=== PATIENT | female | born 1980 | race Caucasian/White ===

== ENCOUNTER → 2022-11-05 15:03 | Outpatient (CLI) | payer OTHER, SELFPAY ==
--- NOTE | ~2022-11-05 | MM_ITS ---
EXAMINATION: MM screening monse BI w lionel HISTORY: Screening mammogram TECHNIQUE: Craniocaudal and mediolateral oblique 3-D tomosynthesis images were obtained and synthetic 2-D images were generated. CAD analysis was submitted and interpreted. COMPARISON: 02/24/2019 BREAST PARENCHYMAL COMPOSITION: The breasts are heterogeneously dense, which may obscure small masses . FINDINGS: No suspicious mass, calcification, or architectural distortion are identified in either shara ast to suggest malignancy. There has been no suspicious interval change. IMPRESSION: 1. No mammographic evidence of malignancy. 2. Recommend routine screening mammography in one year. BI-RADS Category 1: Negative Reviewed, dictated and finalized at location A. NICS ENGINEER
== END ==
PROVIDERS: PCP Family Medicine; Visit Provider Family Medicine
DX: Z12.31 Encounter for screening mammogram for malignant neoplasm of breast (principal)
CPT/HCPCS: 77063; 77067

== ENCOUNTER 2022-11-06 08:38 | Outpatient (CLI) | payer OTHER, SELFPAY ==
--- NOTE | ~2022-11-06 | MR_ITS ---
MRI of the left knee Clinical history: Pain Technique: Coronal proton density and proton density-weighted images, sagittal proton-density and T2 fat-sat images, and axial proton-density fat-saturated images were acquired. Findings: Anterior and posterior cruciate ligaments are intact. Medial collateral ligament and the la teral collateral ligament complex are intact. Popliteus tendon is intact. There is mild intrasubstance degenerative signal in the menisci without definite medial or lateral me niscal tear. There is mild chondromalacia the medial and lateral compartments. There is extensive high-grade chond romalacia of the femoral trochlea. There is extensive high-grade chondromalacia patella, especially o f the lateral patellar facet. There is narrowing of the lateral patellofemoral compartment with walker lofemoral osteophytes present. There are small medial and lateral joint line osteophytes. Extensor mechanism is intact. No significant joint effusion or Eller's cyst. Impression: Moderate osteoarthritis of the patellofemoral compartment, as detailed above. Mild degenerative hammer e of the medial and lateral compartments. No ligamentous injury or meniscal tear. Reviewed, dictated and finalized at location M. AURANT AREA MANAGER Impression: Moderate osteoarthritis of the patellofemoral compartment, as detailed above. M ild degenerative change of the medial and lateral compartments. No ligamentous injury or meniscal tear.
== END 2022-11-06 08:39 ==
PROVIDERS: PCP Physician Assistant; Visit Provider Physician Assistant
DX: M25.562 Pain in left knee (principal); M23.8X2 Other internal derangements of left knee; M17.12 Unilateral primary osteoarthritis, left knee
CPT/HCPCS: 73721

== ENCOUNTER 2023-01-01 14:19 | Outpatient (CLI) | payer OTHER, SELFPAY ==
--- NOTE | ~2023-01-01 | US_ITS ---
EXAMINATION: US soft tissue buttock RT DATE: 01/01/2023 14:35 INDICATION: Right buttock lump. TECHNIQUE: Multiple grayscale and Doppler ultrasound images of the right buttock were obtained. COMPARISON: None FINDINGS: In the right buttock, there is a 3.0 x 2.9 x 2.6 cm peripherally calcified subcutaneous mas s. IMPRESSION: 1. Peripherally calcified subcutaneous mass in the right buttock, likely old fat necrosis. Reviewed, dictated and finalized at location A. ICULUM DEVELOPMENT COORDINATOR IMPRESSION: 1. Peripherally calcified subcutaneous mass in the right buttock, likely old fa t necrosis.
== END 2023-01-01 14:20 ==
PROVIDERS: PCP Family Medicine; Visit Provider Nurse Practitioner
DX: R22.2 Localized swelling, mass and lump, trunk (principal)
CPT/HCPCS: 76705

== ENCOUNTER 2023-02-10 00:12 | Day surgery (SDC) | payer OTHER, SELFPAY ==
[2023-01-29 09:58] VITALS: BMI 47.9
--- NOTE | 2023-01-29 10:11 | PC.NURSE ---
Report to the Outpatient Waiting Room, entrance under the green pavilion located off [facility], at time _1000 on date _02/10/23. Planned Procedure Time: 1200. Time changes happen often and if your time is changed the preop area will call you the afternoon before. - You and your visitor will be asked to self-screen and do not enter if you have any COVID symptoms. - Only one visitor is requested with a max of two and NO children visitors are allowed at this time. - The patient visitor may be requested to leave or wait in car when not with patient due to distancing restrictions. - A mask is optional within the hospital at this time. Patients may have clear liquids (water, carbonated beverages, clear teas, apple juice) until 3 hours prior to surgery with a maximum of 20 ounces. - No food from midnight until time of surgery - Infants may have breast milk until 4 hours before surgery, infant formula 6 hours prior to surgery. - Children will be allowed to drink immediately following surgery. If applicable, please bring a bottle or sippy cup to assist with drinking. Juice, water, soda, and popsicles are readily available. For infants on formula, please bring formula the day of surgery. Pacifiers are allowed. Take the following medications with a SIP of water the morning of surgery: levothyroxine, allegra___ DO NOT STOP ANY OF YOUR OTHER PRESCRIPTION MEDICATIONS PRIOR TO SURGERY ?EXCEPT THE FOLLOWING Medications to discontinue per physician Date to take last dose Please no make-up, nail greek, hairspray, perfume, deodorant, or body powder the day of surgery. No jewelry (including any body piercings) or valuables the day of surgery, leave them at home. Please take a shower or bath the night before, or the morning of, surgery with an antibacterial soap. Wear comfortable, loose fitting clothing. Children are encouraged to wear pajamas. - Jewelry must be removed prior to entering the operating room. Rings and piercings that are not removed may be cut off. - The hospital will not accept responsibility for valuables. - Please leave all valuables, including medications, at home the day of surgery. If you are going home after surgery, a licensed roll off driver must drive you home. - NO public transportation without another adult if you receive anesthesia. - We recommend that an adult stay with you for 24 hours following discharge. - We also recommend that you do not drive, make important decision, drink alcoholic beverages, or take any drugs that were not prescribed by your health care provider for at least 24 hours after your discharge time. For Pediatric surgeries, we recommend two adults accompany the child home. Follow any additional instructions given to you from your surgeon. If you or anyone in your household have experienced Covid symptoms in the past week, please notify your surgeon or the nurse liaison at the phone number below for possible testing. Telephone instructions given to Lisa Martínez and asked if any additional questions and then verbalized understanding. Patient advised to call surgeon office or pre surgery nurse liaison [phone] if any additional questions.
--- NOTE | 2023-02-10 08:36 | WPDANESEPPF ---
Anes - Initial Pre Proc Eval Procedure: Operation Date: 02/10/23 12:00 Proposed Procedures p Excisional Biopsy Right Buttock Mass - Elodia Escalante MD Date/Time: 02/10/23 08:36 Surgeon: Elodia Escalante MD Pre Op Diagnosis: Recurrent Rt Buttock mass Patient Data Age: 42 Gender: F Height: 1.7 m Weight: 139 kg Allergies Allergy/AdvReac Type Severity Reaction Status Date / Time Penicillins Allergy Unknown 1985 per Verified 02/10/23 11:07 chart Home Medications Medication Instructions Recorded Confirmed Type fexofenadine 180 mg tablet 180 mg PO DAILY 04/11/20 02/10/23 History ([place]am[place] Allergy) levothyroxine 75 mcg capsule 75 mcg PO DAILY 06/12/21 02/10/23 History thyroid (pork) 180 mg tablet 180 mg PO DAILY 06/12/21 02/10/23 History ([place] Thyroid) metformin 500 mg tablet,extended 500 tablet PO DAILY 10/30/22 02/10/23 History release 24 hr Patient hx anesthesia problems: none Family hx anesthesia problems: none Results Review: All pre-operative results and documents have been reviewed as part of the pre-operative evaluation. 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 Surgical History Surgical History H/O excision of mass excision of goiter excision of R buttock lipoma History of wisdom tooth extraction (~1999) Family History Family History Grandparent Parkinson disease Alzheimer's disease Father Family history of suicide Hypertension Mother Thyroid disease Other Depression Family history of malignant neoplasm of breast Social History Social History Smoking packs per day: 0.5 Smoking cigarettes per day: 10.0 Years smoked: 5 Smoking pack-years: 2.50 Smoking status: Former smoker Tobacco type: cigarettes Smoking end date: 11/03/07 Alcohol intake: current Substance use: never Lack of Transportation: No Lack of Food: Never True Current Housing: I Have Housing Concerned About Future Housing: No Difficulty Paying Gas/Electric Bills: No Difficulty Paying for Meds: No Currently Unemployed: No Education: Master's Degree or Higher Difficulty w/ Childcare or Family Care: No Living arrangements: with family Occupation/Education: occupation 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 Informed Consent: The patient's anesthetic plan and its attendant risks and benefits were discussed with the patient/family/POA. Questions were solicited and answers provided to the satisfaction of the patient/family/POA.
[2023-02-10] MEDS: LACTATED RINGERS 1,000 ML 30 ML IV CONT (10:30)
[2023-02-10 11:00] VITALS: BP 127/94; PULSE 94; RESP 16; TEMP 36.5; O2SAT 100
--- NOTE | 2023-02-10 12:02 | WPDHPUPDATE1 ---
History and Physical Update Update Date/Time: 02/10/23 12:02 History and Physical has been reviewed, including an updated exam of the patient. There are NO changes in the patient's condition. Risks, benefits, and alternatives have been discussed and questions answered. Patient agrees to proceed with procedure.
[2023-02-10] MEDS: ceFAZolin 3 GM/D5W 100 ML 100 ML IVPB (12:10)
[2023-02-10] MEDS: BUPIVACAINE/EPINEPHRINE 0.5% 50 ML VIAL 30 ML INFILTRATE (12:32)
[2023-02-10 13:00] VITALS: BP 118/74; PULSE 91; RESP 12
--- NOTE | 2023-02-10 13:09 | W.PM.PROC2 ---
Procedure Note - Detailed Date of Procedure 02/10/23 Pre-op Diagnosis Recurrent Rt Buttock mass Post-op Diagnosis Other ( Liquified necrosis, deep fluid collection, area measuring 5x5x5 cm) Procedure Performed Excisional biopsy including previous scar recurrent right buttock mass measuring approximately 5 x 5 x 5 cm, drainage of deep fluid collection Surgeon Elodia Escalante MD Anesthesia MAC and Local Indications 42-year-old female status post excision of a right buttock lipoma years ago, now presenting with recurrent mass and pain at previous incision site Findings the a large amount of fibrotic scar tissue, deep cavity with fluid for collection Description of Procedure The patient was taken to the operating room placed in the supine position. After adequate induction of MAC anesthesia, the patient was prepped and draped in the normal sterile fashion. A time-out was then done to verify the patient's identity, as well as the procedure being performed. I then localized the area in and around this previous incision and recurrent mass. Once adequately anesthetized, I excised the previous scar in the dermis and carried this down to the subcutaneous tissue. Once in the subcutaneous tissue, there was noted to be a large calcified cavity. This cavity was quite extensive in deep. It measured approximately 5 x 5 x 5 cm. I then opened the cavity and there was noted to be a moderate amount of thick serous fluid. And of note, no obvious infection was noted. Once I excised the mass and the cavity was completely cleared, I copiously irrigated the tissue. No other pathology was noted. I then left a [place] drain at the base of the cavity given the depth. This was coming out through the most lateral portion of our incision. I then closed the deep subcutaneous tissue with 0 Vicryl suture. The subcutaneous tissue was closed with 3-0 Vicryl suture. The skin was closed with interrupted 3-0 nylon mattress sutures. A drain stitch was placed around the Agustin itself. Sterile dressing was then placed. The patient tolerated the procedure well and was alert and awake in the operating room postoperatively. She will be sent to the recovery room in stable condition. Estimated Blood Loss 10 Drains Yes Packing No Pathology Yes Complications No immediate complications Condition Stable Disposition PACU [facility] Billing Surgery - Charge Forward: Surgery Billing
[2023-02-10 13:30] VITALS: BP 114/70; PULSE 87; RESP 12
== END 2023-02-10 13:56 | disposition home or self-care (01) ==
PROVIDERS: PCP Family Medicine; Visit Provider Surgery
PROC: (CPT 21931; principal; 2023-02-10 12:00)
DX: M79.89 Other specified soft tissue disorders (principal); E06.3 Autoimmune thyroiditis; Z79.84 Long term (current) use of oral hypoglycemic drugs; Z87.891 Personal history of nicotine dependence; E66.01 Morbid (severe) obesity due to excess calories; Z68.42 Body mass index [BMI] 45.0-49.9, adult
CPT/HCPCS: 21931; 88304; J0690; J2250; J2704; J3010; J7120

== ENCOUNTER → 2023-06-24 15:13 | Outpatient (CLI) | payer OTHER, SELFPAY ==
--- NOTE | ~2023-06-24 | CT_ITS ---
EXAMINATION: CT sinus wo con DATE: 06/24/2023 15:26 INDICATION: Sinusitis TECHNIQUE: Computed tomography (CT) of the paranasal sinuses was performed without intravenous contra st. The dose-length product was 406.70 mGy-cm. Automated exposure control and iterative reconstructio n technique were employed. COMPARISON: None FINDINGS: There is moderate mucosal thickening of the frontal, ethmoid, sphenoid and maxillary sinuse s. Leftward nasal septal deviation. The right ostiomeatal unit is occluded by soft tissue. Left ostio meatal unit is patent. Mastoids are pneumatized. IMPRESSION: 1. Moderate pansinusitis with occlusion of the right ostiomeatal unit. Reviewed, dictated and finalized at location L.
== END ==
PROVIDERS: PCP Family Medicine; Visit Provider Family Medicine
DX: J34.89 Other specified disorders of nose and nasal sinuses (principal); J32.4 Chronic pansinusitis
CPT/HCPCS: 70486

== ENCOUNTER 2023-09-30 01:37 | Day surgery (SDC) | payer OTHER, SELFPAY ==
[2023-09-19 10:28] VITALS: BMI 44.6
--- NOTE | 2023-09-19 10:32 | PC.NURSE ---
Report to the Outpatient Waiting Room, entrance under the green pavilion located off [facility], at time 1130 on date 09/30/23. Planned Procedure Time: 1330. Time changes happen often and if your time is changed the preop area will call you the afternoon before. - You and your visitor will be asked to self-screen and do not enter if you have any COVID symptoms. - A mask is optional within the hospital at this time. Patients may have clear liquids (water, carbonated beverages, clear teas, apple juice) until 3 hours prior to surgery with a maximum of 20 ounces. - No food from midnight until time of surgery Take the following medications with a SIP of water the morning of surgery: LEVOTHYROXINE, THYROID (PORK) DO NOT STOP ANY OF YOUR OTHER PRESCRIPTION MEDICATIONS PRIOR TO SURGERY ?EXCEPT THE FOLLOWING Medications to discontinue per physician: N/A Date to take last dose: N/A Please no make-up, nail syriac, hairspray, perfume, deodorant, or body powder the day of surgery. No jewelry (including any body piercings) or valuables the day of surgery, leave them at home. Please take a shower or bath the night before, or the morning of, surgery with an antibacterial soap. Wear comfortable, loose fitting clothing. - Jewelry must be removed prior to entering the operating room. Rings and piercings that are not removed may be cut off. - The hospital will not accept responsibility for valuables. - Please leave all valuables, including medications, at home the day of surgery. If you are going home after surgery, a licensed dedicated regional driver must drive you home. - NO public transportation without another adult if you receive anesthesia. - We recommend that an adult stay with you for 24 hours following discharge. - We also recommend that you do not drive, make important decision, drink alcoholic beverages, or take any drugs that were not prescribed by your health care provider for at least 24 hours after your discharge time. Follow any additional instructions given to you from your surgeon. If you or anyone in your household have experienced Covid symptoms in the past week, please notify your surgeon or the nurse liaison at the phone number below for possible testing. Telephone instructions given to PT - CHARLINE ABRAHAM and asked if any additional questions and then verbalized understanding. Patient advised to call surgeon office or pre surgery nurse liaison [phone] if any additional questions.
--- NOTE | 2023-09-28 15:40 | PM.IMHP ---
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 Escalante Family History Family History Grandparent Parkinson disease Alzheimer's disease Father Family history of suicide Hypertension Mother Thyroid disease Other Depression Family history of malignant neoplasm of breast Social History Social History Smoking packs per day: 0.5 Smoking cigarettes per day: 10.0 Years smoked: 5 Smoking pack-years: 2.50 Smoking status: Former smoker Tobacco type: cigarettes Smoking end date: 11/03/10 Additional smoking assessment comments: FORMER SOCIAL SMOKER Alcohol intake: current Alcohol use details: RARE Substance use: never Substance use type: does not use Lack of Transportation: No Lack of Food: Never True Current Housing: I Have Housing Concerned About Future Housing: No Difficulty Paying Gas/Electric Bills: No Difficulty Paying for Meds: No Currently Unemployed: No Education: Master's Degree or Higher Difficulty w/ Childcare or Family Care: No Living arrangements: with family Occupation/Education: occupation 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 Gender identity (if verbalized by the patient): Female Sexual Orientation (if Verbalized by the Patient): Straight or Heterosexual Spiritual care concerns: No Meds Home Medications and Allergies Home Medications Medication Instructions Recorded Confirmed Type fexofenadine 180 mg tablet 180 mg PO DAILY 04/11/20 09/19/23 History ([place]am[place] Allergy) levothyroxine 75 mcg capsule 75 mcg PO DAILY 06/12/21 09/19/23 History thyroid (pork) 180 mg tablet 180 mg PO DAILY 06/12/21 09/19/23 History ([place] Thyroid) metformin 500 mg tablet,extended 500 tablet PO BID 10/30/22 09/19/23 History release 24 hr pseudoephedrine HCl 120 mg 120 mg PO Q12H 09/19/23 09/19/23 History tablet,extended release (Sudafed 12 Hour) Allergies Allergy/AdvReac Type Severity Reaction Status Date / Time Penicillins Allergy Unknown 1984 per Verified 09/19/23 10:27 chart Exam Narrative: septal deviation turbinate hypertrophy chronic appearing sinuses Assessment and Plan Assessment and plan (1) Hypertrophy of both inferior nasal turbinates: Code(s): J34.3 - Hypertrophy of nasal turbinates Status: Acute Assessment and Plan: plan OR for bilateral image guided endoscopic maxillary antrostomies total ethmoidectomies sphenoidotomies as well as endoscopic assisted septoplasty inferior turbinate reduction with outfracture bilaterally. Risks were discussed including re hypertrophy of the turbinates postoperative bleeding postoperative infection septal perforation CSF leak brain brain damage change in vision total blindness need for further surgeries failure to resolve symptoms. Damage to any structure of the clavicles by myself damage to any structure during the induction and maintenance o
--- NOTE | 2023-09-29 14:37 | WPDANESEPPF ---
Anes - Initial Pre Proc Eval Procedure: Operation Date: 09/30/23 13:30 Proposed Procedures p Image Guided Bilateral Inferior Turbinate Reduction with Outfracture, Endoscopic Bilateral Maxillary Antrostomy, Total Ethmoidetomy, Bilateral Sphenoidotomy, - Chandrakant Gonzales MD s Septoplasty - Chandrakant Gonzales MD Date/Time: 09/29/23 14:37 Surgeon: Chandrakant Gonzales MD Pre Op Diagnosis: Chr Sinusitis, Nasal Obstruc, Nasal Luisito (cont) Patient Data Age: 42 Gender: F Height: 1.7 m Weight: 129.3 kg Allergies Allergy/AdvReac Type Severity Reaction Status Date / Time Penicillins Allergy Unknown 1984 per Verified 09/30/23 12:40 chart Home Medications Medication Instructions Recorded Confirmed Type fexofenadine 180 mg tablet 180 mg PO DAILY 04/11/20 09/30/23 History ([place] Allergy) levothyroxine 75 mcg capsule 75 mcg PO DAILY 06/12/21 09/30/23 History thyroid (pork) 180 mg tablet 180 mg PO DAILY 06/12/21 09/30/23 History ([place] Thyroid) metformin 500 mg tablet,extended 500 tablet PO BID 10/30/22 09/30/23 History release 24 hr pseudoephedrine HCl 120 mg 120 mg PO Q12H 09/19/23 09/30/23 History tablet,extended release (Sudafed 12 Hour) Patient hx anesthesia problems: none Family hx anesthesia problems: none Results Review: All pre-operative results and documents have been reviewed as part of the pre-operative evaluation. 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 Escalante Family History Family History Grandparent Parkinson disease Alzheimer's disease Father Family history of suicide Hypertension Mother Thyroid disease Other Depression Family history of malignant neoplasm of breast Social History Social History Smoking packs per day: 0.5 Smoking cigarettes per day: 10.0 Years smoked: 5 Smoking pack-years: 2.50 Smoking status: Former smoker Tobacco type: cigarettes Smoking end date: 11/03/10 Additional smoking assessment comments: FORMER SOCIAL SMOKER Alcohol intake: current Alcohol use details: RARE Substance use: never Substance use type: does not use Lack of Transportation: No Lack of Food: Never True Current Housing: I Have Housing Concerned About Future Housing: No Difficulty Paying Gas/Electric Bills: No Difficulty Paying for Meds: No Currently Unemployed: No Education: Master's Degree or Higher Difficulty w/ Childcare or Family Care: No Living arrangements: with family Occupation/Education: occupation Additional occupation/education comments: [employer] Gender identity (if verbalized by the patient): Female Sexual Orientation (if Verbalized by the Patient): Straight or Heterosexual Spiritual care concerns: No Anes - Eval Final PreProcedure Day of Procedure 09/29/23 14:37 Patient weight: morbidly obese Heart: regular rate and rhythm Lungs: clear to auscultation Airway: Mallampati scale class II Neurological: alert and oriented Last oral intake: >/= 8 hours ASA classification: III Emergent: no Anesthetic plan: proceed Anesthesia type and monitoring: general ETT and standard monitoring Results Review: All pre-operative results and documents have been reviewed as part of the pre-operative evaluation.
[2023-09-30] VITALS (8 sets, daily range): BP systolic 134–151; BP diastolic 90–98; PULSE 81–99; RESP 13–22; TEMP 36.6–36.7; O2SAT 96–100
--- NOTE | 2023-09-30 07:18 | WPDHPUPDATE1 ---
History and Physical Update Update Date/Time: 09/30/23 07:18 History and Physical has been reviewed, including an updated exam of the patient. There are NO changes in the patient's condition. Risks, benefits, and alternatives have been discussed and questions answered. Patient agrees to proceed with procedure.
[2023-09-30] MEDS: LACTATED RINGERS 1,000 ML 30 ML IV CONT (12:00)
[2023-09-30] MEDS: ACETAMINOPHEN 500 MG TABLET 1000 MG PO (12:00)
[2023-09-30] MEDS: ceFAZolin 3 GM/D5W 100 ML 100 ML IVPB (13:39)
[2023-09-30] MEDS: LIDO 1%/EPINEPHRINE 1:100,000 50 ML VIAL INFILTRATE (14:00)
[2023-09-30] MEDS: OXYMETAZOLINE HCL 0.05% NAS 15 ML BTL (*BKC) 1 SPRAY NASAL (14:01)
--- NOTE | 2023-09-30 18:04 | P.OP_ITS ---
Procedure Note - Detailed Date of Procedure 09/30/23 Pre-op Diagnosis Chr Sinusitis, Nasal Obstruc, Nasal Luisito (cont), septal deviation, inferior turbinate hypertrophy Post-op Diagnosis Same Procedure Performed endoscopic image guided bilateral maxillary antrostomies total ethmoidectomies frontal sinusotomies sphenoidotomies. Endoscopic assisted septoplasty. Inferior turbinate reduction bilaterally with outfracture. Surgeon Chandrakant Gonzales MD Anesthesia General Indications See above Findings much more diseased polyps and mucosa than expected based on CT scan anterior ethmoids were severely diseased and my concern was that they would block the frontal outflows thus I decided to perform bilateral frontal sinusotomies. I also placed propel stents to keep these patent. Description of Procedure Patient identified consent verified preop. Patient brought to operating. Time-out performed. General anesthesia induced endotracheal tube secured. Patient prepped draped position procedure confirmed 2nd time-out performed. Afrin-soaked pledgets placed for 5 removed. Image guidance initiated. Total 8 cc % lidocaine 1000 parts epinephrine checked septum and inferior turbinates. Inferior turbinates reduced submucosally with Melissa 2.5 microdebrider then outfractured with [place]. [place] incision made left-sided 15 blade nasal septal flaps elevated with several Bulgarian suction small perforation right side none on the left. Deviated septum removed combination Thom forceps Montrell Tijerina forceps and osteotome. Septum quilted quilting the middle turbinates medially and then the procedure North splints were placed. Maxillary antrostomies performed with image guidance image guided microdebrider straight through cutter double ball tip probe back as well as rad 60 microdebrider and 70 degree scope. Ethmoidectomies with [place] image guided microdebrider image guidance. 70 degree scope and frontal sinus instruments including Hosemann and Cobra. Sphenoidotomies performed under image guidance with sphenoid punch and [place] great care was made to ensure the posterior septum as well anterior were injured. No damage to septum no damage to orbit. The left lamina was very thinned. Frontal sinusotomies sella at the end of the planned procedure there was severe scarring and edema near the frontal outflows. Nose concern leaving these would lead to scarring down and frontal sinus obstruction. Bilateral frontal sinusotomies were performed with image guidance 70 degree scope Hosemann and Cobra. Propel stents were then placed. No damage to skull base. No pack was then placed. North splints were placed and sutured bilat with a 3-0 mattress suture. I performed all dictated portions the procedure. Blood loss 100 cc. No immediate complications. Care the patient was taken care patient given anesthesiology. Patient was taken to PACU. Portion of mucosa and overlying the right nasal lacrimal duct was inadvertently debrided. A keep a close on epic for on the side Estimated Blood Loss -100.0 Drains No Packing Yes ( no packs) Pathology None sent Complications No immediate complications Condition Stable Disposition PACU [facility] Billing Surgery - Charge Forward: Surgery Billing
== END 2023-09-30 19:00 | disposition home or self-care (01) ==
PROVIDERS: PCP Family Medicine; Visit Provider Otolaryngology
PROC: (CPT 30520; principal; 2023-09-30 13:30)
PROC: (CPT 30520; 2023-09-30 13:30)
DX: J34.2 Deviated nasal septum (principal); E03.9 Hypothyroidism, unspecified; E06.9 Thyroiditis, unspecified; E05.90 Thyrotoxicosis, unspecified without thyrotoxic crisis or storm; E66.9 Obesity, unspecified; Z68.41 Body mass index [BMI] 40.0-44.9, adult; Z79.84 Long term (current) use of oral hypoglycemic drugs; Z87.891 Personal history of nicotine dependence; Z86.010 Personal history of colon polyps; Z87.2 Personal history of diseases of the skin and subcutaneous tissue; Z80.3 Family history of malignant neoplasm of breast
CPT/HCPCS: 30520; 31257; 31256; 30140; A9270; C2625; J0330; J0690; J1100; J2250; J2405; J2704; J3010; J7040; J7120

== ENCOUNTER 2024-12-02 14:35 | Outpatient (CLI) | payer OTHER, SELFPAY ==
--- NOTE | ~2024-12-02 | MR_ITS ---
EXAMINATION: MR foot LT wo con DATE: 12/02/2024 15:16 INDICATION: Metatarsalgia at the left foot TECHNIQUE: Magnetic resonance imaging (MRI) of the left fore/mid foot was performed without intraveno us contrast. Sequences included sagittal T1-weighted FSE, sagittal fluid sensitive FSE STIR, coronal PD-weighted FS FSE, coronal T1-weighted FSE, axial PD-weighted FS FSE, and axial PD-weighted FSE. COMPARISON: Right breast dated 11/17/2024 FINDINGS: Bone alignment is normal. Small focus of likely osteoarthritis related mild subarticular edema-like s ignal change in the medial cuneiform along its articulation with the middle cuneiform with associated mild nonuniform joint space narrowing. Additional mild osteoarthritis at the tibiotalar and a few of the tarsal metatarsal and interphalangeal joints. Heterotopic ossification at the anterior distal ti p of the lateral malleolus likely related to chronic tear of the anterior talofibular ligament. There is thickening of the superficial deltoid ligament and disorganization with lax appearance to the nor [place]ia well-defined striated pattern of the deep deltoid ligament consistent with scarring related to chronic sprains. There is likely secondary mild cystic change in the medial malleolus underlying the footplate of the deep deltoid ligament. Bone marrow signal is otherwise normal with no stress reactio n, fracture or other pathologic marrow replacing process. The Lisfranc ligament complex as well as th e collateral ligament complex at the metatarsophalangeal and interphalangeal joints are normal. Visua lized portions of the flexor and extensor tendons are normal. No joint effusion, bursitis, tenosynovi tis or other abnormal fluid collections. Intrinsic musculature of the foot is unremarkable. IMPRESSION: 1. Mild polyarticular osteoarthritis at the left ankle and a few joints in the mid and forefoot. 2. Stigmata of chronic medial and lateral ankle sprains. Reviewed, dictated and finalized at location B. HANT BANKER
== END 2024-12-02 14:36 | disposition home or self-care (01) ==
PROVIDERS: PCP Family Medicine; Visit Provider Family Medicine
DX: M77.42 Metatarsalgia, left foot (principal); M19.072 Primary osteoarthritis, left ankle and foot
CPT/HCPCS: 73718

== ENCOUNTER 2025-01-18 15:20 | Outpatient (CLI) | payer OTHER, SELFPAY ==
--- NOTE | ~2025-01-18 | MM_ITS ---
EXAMINATION: MM screening monse BI w lionel HISTORY: Screening TECHNIQUE: Craniocaudal and mediolateral oblique 3-D tomosynthesis images were obtained and synthetic 2-D images were generated. CAD analysis was submitted and interpreted. COMPARISON: Comparison to multiple prior studies sequentially, with oldest reviewed study dated 02/24. BREAST PARENCHYMAL COMPOSITION: Dense: The breasts are heterogeneously dense, which may obscure small masses FINDINGS: There is no evidence of suspicious mass, calcification, or architectural distortion to sugg est malignancy in either breast. There has been no suspicious interval change. IMPRESSION: 1. No mammographic evidence of malignancy. 2. Recommend routine screening mammography in one year. BI-RADS Category 1: Negative Reviewed, dictated and finalized at location B.
== END 2025-01-18 15:21 | disposition home or self-care (01) ==
PROVIDERS: PCP Family Medicine; Visit Provider Family Medicine
DX: Z12.31 Encounter for screening mammogram for malignant neoplasm of breast (principal)
CPT/HCPCS: 77063; 77067